=== PATIENT | male | born 1965 | race Caucasian/White ===

== ENCOUNTER 2024-11-15 06:27 | Day surgery (SDC) | payer OTHER, SELFPAY ==
[2024-11-11 08:45] LABS: Hematocrit 41.3 % (39.0-52.0); Hemoglobin 14.2 g/dL (13.0-18.0); Mean Corp Hgb Conc. 34.4 g/dL (33.0-37.0); Mean Corpuscular Volume 90.2 fL (80.0-94.0); Mean Platelet Volume 9.6 fL (7.4-10.4); Platelet Count 229 10^3/uL (130-400); Red Blood Cell Count 4.58 10^6/uL (4.70-6.10); Red Cell Dist. Width 12.3 % (11.5-14.5)
[2024-11-11 09:30] LABS: Blood Urea Nitrogen 17 mg/dl (9-20); Calcium 8.9 mg/dl (8.4-10.2); Carbon Dioxide 32 mmol/L (22-30); Chloride 102 mmol/L (98-107); Glucose 90 mg/dl (70-99); Potassium 4.6 mmol/L (3.5-5.1); Sodium 141 mmol/L (135-145); eGFR > 60.00
[2024-11-11 13:57] VITALS: BMI 25.1
[2024-11-15] VITALS (13 sets, daily range): BP systolic 94–121; BP diastolic 60–80; BMI 25.1
[2024-11-15] MEDS: NORMOSOL-R/PLASMALYTE-A 1000 IV (08:31)
[2024-11-15] MEDS: TYLENOL 1000 MG PO (08:31)
[2024-11-15] MEDS: SUBLIMAZE 50 MCG IV (11:42)
[2024-11-15] MEDS: MOTRIN 600 MG PO (12:32)
== END 2024-11-15 13:25 | disposition home or self-care (01) ==
LOC: SDS 06:27
PROVIDERS: ATTENDING PHYSICIAN Surgery; FAMILY PHYSICIAN Nurse Practitioner
DX: K40.90 Unilateral inguinal hernia, without obstruction or gangrene, not specified as recurrent (principal)
CPT/HCPCS: 49650; 36415; 80048; 85027; 93005; C1781

== ENCOUNTER 2025-06-01 08:14 | Emergency (ER) | payer OTHER, SELFPAY ==
[2025-06-01 08:15] VITALS: BP 142/92
[2025-06-01 09:04] VITALS: BP 130/77
[2025-06-01 09:08] VITALS: BMI 25.9
[2025-06-01 09:13] VITALS: BP 130/77
[2025-06-01 09:23] LABS: Hematocrit 43.3 % (39.0-52.0); Hemoglobin 15.4 g/dL (13.0-18.0); Mean Corp Hgb Conc. 35.6 g/dL (33.0-37.0); Mean Corpuscular Volume 87.7 fL (80.0-94.0); Nucleated Red Blood Cells % 0 % (-); Platelet Count 216 10^3/uL (130-400); Red Cell Dist. Width 12.0 % (11.5-14.5)
[2025-06-01 09:27] LABS: ALT (SGPT) 27 U/L (0-50); AST (SGOT) 24 U/L (17-59); Albumin 4.6 g/dl (3.5-5.0); Alkaline Phosphatase 59 U/L (38-126); Blood Urea Nitrogen 21 mg/dl (9-20); Calcium 9.9 mg/dl (8.4-10.2); Carbon Dioxide 27 mmol/L (22-30); Chloride 106 mmol/L (98-107); Estimated Creatinine Clearance > 125 ml/min; Glucose 97 mg/dl (70-99); Potassium 4.5 mmol/L (3.5-5.1); Sodium 139 mmol/L (135-145); Total Protein 7.7 g/dl (6.3-8.2); eGFR > 60.00
--- NOTE | 2025-06-01 10:20 | ED.GENMED ---
History of Present Illness
General
Chief Complaint: Rectal Bleeding
Source: patient
Exam Limitations: none
Time Seen by Provider: 06/01/25 08:23
Nursing documentation reviewed up to this point in time: agreed with
History of Present Illness
History of Present Illness:
60-year-old male with no reported chronic medical issues presents to the ER for evaluation of rectal bleeding. Patient reports onset of symptoms about 5 days ago and they have been consistent with each bowel movement. He reports blood mixed with
stool as well as blood at the end of bowel movements and on the toilet tissue. He has had some associated mild abdominal cramping. He denies any associated nausea or vomiting. Denies fevers or chills. Denies shortness of breath or
lightheadedness or any other acute complaints. He is not on any blood thinners. He denies similar symptoms in the past and says he has never had a colonoscopy.
Past History
Past History
ED Past Medical History: None
ED Past Surgical History: None
Social History
Tobacco: Smoker
Alcohol: Occasional
Drug: None
Living: with family
Employment: Employed
Family History
Family History: Hypertension
Review of Systems
Review of Systems
All Other Systems: ROS reviewed and negative except as documented in HPI and ROS
Constitutional: Denies fever
Respiratory: Denies trouble breathing
Cardiac: Denies chest pain
ABD/GI: Reports abdominal pain and bloody stools; Denies nausea, vomiting or diarrhea
: Denies flank pain
Musculoskeletal: Denies neck pain or back pain
Neurological: Denies dizzy or headache
Phy Exam
Physical Exam
Physical Exam:
General: Awake, alert, oriented x3; no acute distress
Head: Normocephalic, atraumatic
Eyes: Conjunctiva normal
Throat: Airway intact, handling secretions
Neck: Trachea midline, supple without meningismus
Lungs: Clear to auscultation bilaterally, no wheezing, rales, rhonchi
Heart: Regular rate and rhythm, no murmurs, gallops, or rubs
Abd: Soft, non distended, minimally tender lower abdomen
Rectal: No hemorrhoids noted, enlarged prostate but no rectal masses, brown stool Hemoccult was positive but no bright red blood noted
Neuro: No gross deficits
Extremities: Warm and well-perfused
Scores
Heart Failure Risk
Heart Failure Risk Score: Not Applicable
Heart Score for Chest Pain Patients
STEMI patient?: Not applicable
Withdrawal Assessment of Alcohol
Withdrawal Assessment Completed?: Not applicable
Course
Orders/Labs/Results
Orders:
Orders
06/01/25 09:07
Type+Screen Urgent
Complete Blood Count/With Diff Urgent
Comprehensive Metabolic Panel Urgent
06/01/25 09:26
CT Abd/pelvis W Iv Cont Urgent
Comment:
Reason For Exam: abd pain, rectal bleeding
Abnormal Lab Results
06/01/25
09:07
MCH 31.2 H pg
(27.0-31.0)
BUN 21 H mg/dl
(9-20)
Creatinine 0.6 L mg/dL
(0.7-1.3)
06/01/25 09:07
06/01/25 09:07
Vital Signs
Initial and Last Documented VS:
Initial Vital Signs
Temp Pulse Resp BP Pulse Ox
36.8 C 62 16 142/92 100
06/01/25 08:15 06/01/25 08:15 06/01/25 08:15 06/01/25 08:15 06/01/25 08:15
Last Documented Vital Signs
Temp Pulse Resp BP Pulse Ox
36.9 C 59 16 130/77 98
06/01/25 09:13 06/01/25 09:13 06/01/25 09:13 06/01/25 09:13 06/01/25 09:13
MDM/Problems Addressed
Differential Diagnosis Includes:
Lower GI bleeding: AVM, diverticular bleed, hemorrhoids, polyp, cancer, colitis, etc
MDM/Problems Addressed:
60-year-old male presents for evaluation of bright red blood per rectum for the past few days associated with occasional crampy abdominal pain. Not on blood thinners. Vital signs stable including heart rate in the 60s and normal blood pressure.
Physical exam as above�no bright red blood noted and no hemorrhoids noted however Hemoccult was positive. Labs were sent off including a CBC which showed robust hemoglobin of 15.4. CMP no clinically significant abnormalities. CT abdomen pelvis
shows diverticulosis but no signs of diverticulitis or any other acute abnormalities. Given stable vitals and hemoglobin with 5 days of symptoms and no visible blood here, in my judgment patient clinically stable for discharge to follow-up with GI
as an outpatient�could be mild colitis, diverticular bleeding a consideration. Ultimately, he needs colonoscopy. I sent a message to the GI restaurant front manager to expedite GI follow-up as an outpatient. Patient comfortable with this plan. We spoke about
return precautions and all questions were answered.
*Radiology
Radiology exam reviewed: radiology read reviewed
*Pulse Oximetry
SaO2: 98
Oxygen Mode of Delivery: Room air
Patient hypoxic: no (98%)
*Critical Care Note
Total Time (30-74mins, 75-104mins- exclusive of procedures): Not Applicable
Data Reviewed
Review of Other/Old Records Reveals: Records
Source: patient and records
Patient Management
Discussion with other providers: Other (Discussed with restaurant front manager of GI office for follow-up)
ED Attending Note
-
Portions of this chart may have been created with voice recognition software.� Occasional wrong word or��sound alike� substitutions may have occurred due to the inherent limitations of voice recognition software.
Discharge Plan
Departure
Patient Disposition: Home (Routine Discharge)
Date of Disposition: 06/01/25
Time of Disposition: 10:20
Patient with high blood pressure during this ER visit?: Yes
Discharge Problem:
Rectal bleeding
Instructions: Bloody Stools, Adult (DC)
Prescriptions:
No Action
tadalafil [Cialis] 20 mg Tablet
20 mg PO DAILY PRN (Reason: ED)
Referrals:
Jessica Basilio MD [Active, Gastroenterology] - Call in 1-3 days for appt
Referral Note: GI
Niki Day CRNP [Family Provider, Family Practice]
Activity Restrictions/Additional Instructions:
Thank you for visiting the Emergency Department at [facility].
1. Please schedule a follow up appointment as directed. Call first thing tomorrow morning to make an appointment.
2. If indicated, please take your medications as instructed and indicated on discharge paperwork.
3. If any of your symptoms do not improve, or persist, or become more severe within 6-12 hours, please return to the emergency department for further care.
4. Please return to the emergency department if you develop a headache, neck pain/stiffness, fever greater than 100.4F, chest pain, shortness of breath, persistent nausea, vomiting, slurred speech, difficulty walking, numbness/tingling, weakness,
signs of infection or any other symptoms that are worrisome to you.
Please call [phone] if you have any questions.
Interventions
Interventions:
*Risk Screen - Suicide Last Done: 06/01/25 08:15
*General Assessment Last Done: 06/01/25 09:13
*Neglect/Abuse Screening Last Done: 06/01/25 08:15
*ED- Fall Risk Assessment Last Done: 06/01/25 09:13
*ED COVID-19 Vaccine History Last Done: 06/01/25 09:13
IY-Gtfrtm-Smpoqdwazs Assessment Last Done: 06/01/25 09:13
ED- Cardiac Assessment Last Done: 06/01/25 09:13
ED- Pulmonary Assessment Last Done: 06/01/25 09:13
Discharge Date and Time
Print Language: SPANISH
== END 2025-06-01 10:32 | disposition home or self-care (01) ==
LOC: EMR 08:14
PROVIDERS: EMERGENCY PHYSICIAN Emergency Medicine; FAMILY PHYSICIAN Nurse Practitioner
DX: K62.5 Hemorrhage of anus and rectum (principal); F17.200 Nicotine dependence, unspecified, uncomplicated
CPT/HCPCS: 99284; 74177; 80053; 85025; 86850; 86900; 86901; Q9967

== ENCOUNTER 2025-07-18 06:12 | Day surgery (SDC) | payer OTHER, SELFPAY | END 2025-07-18 08:55 | disposition home or self-care (01) | LOC: GI 06:12 | PROVIDERS: ATTENDING PHYSICIAN Internal Medicine Gastroenterology | DX: K62.5 Hemorrhage of anus and rectum (principal); K57.30 Diverticulosis of large intestine without perforation or abscess without bleeding; K64.8 Other hemorrhoids | CPT/HCPCS: 45378 ==